=== PATIENT | female | born 1990 | race Caucasian/White ===

== ENCOUNTER → 2021-05-21 14:29 | Outpatient (CLI) | payer OTHER, SELFPAY ==
[2021-05-21 15:22] LABS: Appearance Urine UA CLEAR; Bilirubin Urine UA NEGATIVE (NEGATIVE); Color Urine UA YELLOW; Glucose Urine UA NEGATIVE (Negative); Ketones Urine UA NEGATIVE (NEGATIVE); Leukocyte Esterase Urine UA NEGATIVE (NEGATIVE); Nitrite Urine UA NEGATIVE (Negative); Occult Blood Urine UA NEGATIVE (Negative); Protein Urine UA NEGATIVE (Negative); Specific Gravity Urine UA 1.015 (1.000-1.035); Urobilinogen Urine UA 0.2 E.U./dL (0.2)
[2021-05-21 15:33] LABS: Bacteria Urine None Seen; Culture Indicated Urine Cult Not Indicated; RBC Urine None Seen (0-5/HPF); Squamous Epithelial Cell Urine 1-5 /HPF (0-5/HPF); WBC Urine 0-1/HPF (0-5/HPF)
[2021-05-21 15:37] LABS: Alanine Aminotransferase 24 IU/L (<35); Albumin 4.6 g/dL (3.5-5.0); Albumin Globulin Ratio 1.4 (1.0-2.8); Alkaline Phosphatase 57 U/L (38-126); Amylase 84 U/L (30-110); Aspartate Aminotransferase 36 IU/L (14-36); Bilirubin Total 0.3 mg/dL (0.2-1.3); Blood Urea Nitrogen 12 mg/dL (7-17); C-Reactive Protein Quant < 0.5 mg/dL (<1.0); Calcium 9.9 mg/dL (8.4-10.2); Carbon Dioxide 23 mmol/L (22-32); Chloride 108 mmol/L (98-107); Estimated Glomerular Filt Rate > 60.0 mL/min (>60); Globulin 3.4 g/dL (1.7-4.1); Glucose 91 mg/dL (70-100); HEMOLYSIS 16 (0-50); Lipase 74 U/L (23-300); Potassium 3.9 mmol/L (3.4-5.1); Sodium 140 mmol/L (137-145)
[2021-05-21 15:49] LABS: Add Manual Diff / Slide Review NO; Basophils Absolute Auto 100 /uL (0-100); Basophils Percent Auto 0.6 % (0-2); Eosinophils Absolute Auto 600 /uL (0-450); Eosinophils Percent Auto 4.9 % (2-4); Hemoglobin 14.4 g/dL (12.0-16.0); Lymphocytes Absolute Auto 2700 /uL (1100-4500); Lymphocytes Percent Auto 23.5 % (25-40); Mean Corpuscular HGB Conc 34.2 % (30-36); Mean Corpuscular Hemoglobin 29.6 PG (26-34); Mean Corpuscular Volume 86.5 fL (80-100); Monocytes Absolute Auto 600 /uL (0-900); Monocytes Percent Auto 5.6 % (3-14); Neutrophils Absolute Auto 7600 /uL (1500-7000); Neutrophils Percent Auto 65.4 % (50-75); Platelet Count 258 X10^3/uL (150-400); Red Blood Cell Count 4.86 X10^6/uL (4.0-5.2); Red Cell Distribution Width 14.3 % (11.6-14.8); White Blood Cell Count 11.5 X10^3/uL (4.5-11.0)
[2021-05-21 15:50] LABS: Pregnancy Test Serum,Qual Negative (Negative)
[2021-05-21 16:05] LABS: TSH w/ Reflex to FT4 1.16 uIU/mL (0.47-4.68)
== END ==
PROVIDERS: PCP Registered Nurse Diabetes Educator; Referring Provider Registered Nurse Diabetes Educator; Visit Provider Registered Nurse Diabetes Educator
DX: R10.9 Unspecified abdominal pain (principal); R19.7 Diarrhea, unspecified
CPT/HCPCS: 36415; 80053; 81001; 82150; 83690; 84443; 84703; 85025; 86140

== ENCOUNTER 2021-05-25 15:09 | Emergency (ER) | payer OTHER, SELFPAY ==
[2021-05-25 15:13] VITALS: BP 119/62; PULSE 65; RESP 16; TEMP 36.3; O2SAT 100; BMI 30.4
[2021-05-25 16:09] LABS: Add Manual Diff / Slide Review NO; Basophils Absolute Auto 100 /uL (0-100); Basophils Percent Auto 0.7 % (0-2); Eosinophils Absolute Auto 700 /uL (0-450); Eosinophils Percent Auto 7.3 % (2-4); Hematocrit 42.1 % (36-46); Hemoglobin 14.4 g/dL (12.0-16.0); Lymphocytes Absolute Auto 2800 /uL (1100-4500); Lymphocytes Percent Auto 28.7 % (25-40); Mean Corpuscular HGB Conc 34.1 % (30-36); Mean Corpuscular Volume 88.1 fL (80-100); Monocytes Absolute Auto 600 /uL (0-900); Monocytes Percent Auto 6.1 % (3-14); Neutrophils Absolute Auto 5600 /uL (1500-7000); Neutrophils Percent Auto 57.2 % (50-75); Platelet Count 257 X10^3/uL (150-400); Red Blood Cell Count 4.78 X10^6/uL (4.0-5.2); Red Cell Distribution Width 14.3 % (11.6-14.8); White Blood Cell Count 9.8 X10^3/uL (4.5-11.0)
[2021-05-25 16:12] LABS: Alanine Aminotransferase 24 IU/L (<35); Albumin 4.7 g/dL (3.5-5.0); Albumin Globulin Ratio 1.6 (1.0-2.8); Alkaline Phosphatase 47 U/L (38-126); Aspartate Aminotransferase 26 IU/L (14-36); BUN Creatinine Ratio 16.7 (6-22); Bilirubin Total 0.3 mg/dL (0.2-1.3); Blood Urea Nitrogen 13 mg/dL (7-17); Calcium 9.4 mg/dL (8.4-10.2); Carbon Dioxide 25 mmol/L (22-32); Chloride 106 mmol/L (98-107); Estimated Glomerular Filt Rate > 60.0 mL/min (>60); Glucose 103 mg/dL (70-100); HEMOLYSIS 23 (0-50); Lipase 89 U/L (23-300); Potassium 3.8 mmol/L (3.4-5.1); Sodium 139 mmol/L (137-145); Total Protein 7.7 g/dL (6.3-8.2)
--- NOTE | 2021-05-25 16:40 | DI.RAD.S_ITS ---
PROCEDURE: XR KUB INDICATIONS: Abdominal pain TECHNIQUE: One view of the abdomen acquired. COMPARISON: None. FINDINGS: Surgical changes and devices: None. Bowel: Bowel gas pattern is normal. Soft tissues: No suspicious abdominal calcifications. Visualized solid organ contours appear normal in size. Intrauterine device projects over the mid pelvis. Bones: No suspicious bony lesions. IMPRESSION: No acute disease process. Dictated by: Patricia Zuleta MD, PhD on 05/25/2021 at 17:07 Approved by: Patricia Zuleta MD, PhD on 05/25/2021 at 17:07
--- NOTE | 2021-05-25 17:40 | ED.ABDPAIN ---
HPI - Abdominal Pain <Willis Pacheco PA-C - Last Filed: 05/25/21 20:09> General Chief Complaint: Abdominal Pain Stated Complaint: Diarrhea, Stomach and Back Pain Time Seen by Provider: 05/25/21 15:59 Source: patient Mode of arrival: Ambulatory History of Present Illness HPI narrative: Patient is a 31-year-old female that presents the emergency department today for evaluation of abdominal pain and diarrhea. Patient states that she has experienced abdominal pain and diarrhea for ?over a month?. Patient states that she has also experienced intermittent episodes of right-sided low back pain. She states that her pain is progressively worsening, noting that her primary care provider is attempting to set up an outpatient CT for evaluation. She denies fever, chills, chest pain, cough, shortness of breath, nausea, vomiting, constipation, dysuria, hematuria, or any other concerning symptoms. No further concerns were voiced at this time. Related Data Home Medications Medication Instructions Recorded Confirmed levonorgestrel 20 mcg/24 hours (7 INTRAUTERINE 11/08/05/21/21 yrs) 52 mg intrauterine device (Mirena) Previous Rx's Medication Instructions Recorded hydroxyzine HCl 25 mg tablet 25 mg PO QID PRN #30 tab 05/09/21 tramadol 50 mg tablet 50 mg PO BID PRN #10 tab 05/21/21 tramadol 50 mg tablet 50 mg PO BID PRN #15 tab 05/25/21 Allergies Allergy/AdvReac Type Severity Reaction Status Date / Time No Known Drug Allergies Allergy Verified 05/25/21 15:18 Review of Systems <Willis Pacheco PA-C - Last Filed: 05/25/21 20:09> Constitutional Constitutional: Denies chills, Denies fatigue, Denies fever(s), Denies frequent falls, Denies lethargy and Denies weakness Eyes Eyes: Denies loss of vision ENT Ears, Nose, Mouth, and Throat: Denies dizziness and Denies neck pain Cardiovascular Cardiovascular: Denies chest pain, Denies irregular heart rhythm, Denies lightheadedness, Denies palpitations, Denies dyspnea, Denies dyspnea on exertion and Denies orthopnea Respiratory Respiratory: Denies cough, Denies dyspnea, Denies dyspnea on exertion and Denies wheezing Gastrointestinal Gastrointestinal: Reports abdominal pain, Denies change in bowel habits, Reports diarrhea, Denies nausea and Denies vomiting Genitourinary Genitourinary: Denies hematuria, Denies flank pain, Denies urinary incontinence and Denies urinary urgency Musculoskeletal Musculoskeletal: Reports back pain (Right low back pain), Denies muscle weakness, Denies neck pain, Denies numbness and Denies tingling Integumentary/Breasts Skin/Breast: Denies pruritus, Denies erythema, Denies rash and Denies wounds Neurologic Neurologic: Denies behavioral changes, Denies confusion, Denies dizziness, Denies frequent falls, Denies loss of vision, Denies numbness, Denies tingling and Denies weakness Psychiatric Psychiatric: Denies behavioral changes and Denies confusion Endocrine Endocrine: Denies fatigue and Denies palpitations Allergic/Immunologic Allergic/Immunologic: Denies wheezing Patient History <Willis Pacheco PA-C - Last Filed: 05/25/21 20:09> Medical History Anxiety (~2014) Decreased libido Surgical History Anesthesia History of surgery (~12/2019) Family History Grandmother Cancer Grandfather History of heart disease Grandmother Diabetes mellitus Social History Smoking Status: Never smoker Smoking Status: Never smoker Substance Use Type: does not use Exam <Willis Pacheco PA-C - Last Filed: 05/25/21 20:09> Narrative Exam Narrative: GENERAL: 31 year old patient appears stated age. Well-developed patient, in no acute distress. HEAD: Atraumatic. Normocephalic. EYES: Pupils equal round and reactive. Extraocular motions intact. No scleral icterus. No injection or drainage. ENT: Nose without bleeding, purulent drainage. Throat without erythema, tonsillar hypertrophy or exudate. Airway patent. NECK: Trachea midline. Non tender CARDIOVASCULAR: Regular rate and rhythm without murmurs, gallops, or rubs. RESPIRATORY: Clear to auscultation. Breath sounds equal bilaterally. No wheezes, rales, or rhonchi. GASTROINTESTINAL: Abdomen soft, nondistended. Mild tenderness to palpation noted the right lower quadrant. Negative psoas sign, negative obturator's sign. Negative for rebound tenderness. EXTREMITIES: No edema or joint tenderness. BACK: Mild tenderness to the right paraspinal muscles in the area L4-5, L5-S1 without deformity or crepitance. No flank tenderness. NEURO: AOx3. SKIN: No rash or erythema of visible areas Initial Vital Signs Initial Vital Signs: Vital Signs Temperature 97.4 F L 05/25/21 15:13 Pulse Rate 65 05/25/21 15:13 Respiratory Rate 16 05/25/21 15:13 Blood Pressure 119/62 05/25/21 15:13 Pulse Oximetry 100 05/25/21 15:13 <DO Shayne Wise Last Filed: 05/26/21 07:13> Initial Vital Signs Initial Vital Signs: Vital Signs Temperature 97.4 F L 05/25/21 15:13 Pulse Rate 65 05/25/21 15:13 Respiratory Rate 16 05/25/21 15:13 Blood Pressure 119/62 05/25/21 15:13 Pulse Oximetry 100 05/25/21 15:13 Course <Willis Pacheco PA-C - Last Filed: 05/25/21 20:09> Course Course Narrative: CBC, CMP, lipase, urine dip, x-ray KUB obtained. Orders Ordered: ED Orders 05/25/21 15:18 EKG-12 Lead Stat 05/25/21 15:30 Complete Blood Count AUTO DIFF Stat Comprehensive Metabolic Panel Stat Lipase Stat 05/25/21 16:40 XR KUB Stat Vital Signs Vital signs: Vital Signs - 8 hr 05/25/21 15:13 Temperature 97.4 F L Pulse Rate 65 Respiratory Rate 16 Blood Pressure 119/62 Pulse Oximetry 100 <DO Shayne Wise Last Filed: 05/26/21 07:13> Orders Ordered: ED Orders 05/25/21 15:18 EKG-12 Lead Stat 05/25/21 15:30 Complete Blood Count AUTO DIFF Stat Comprehensive Metabolic Panel Stat Lipase Stat 05/25/21 16:40 XR KUB Stat Vital Signs Vital signs: Vital Signs - 8 hr 05/25/21 15:13 Temperature 97.4 F L Pulse Rate 65 Respiratory Rate 16 Blood Pressure 119/62 Pulse Oximetry 100 MDM - Abdominal Pain <NEO Sanchez Last Filed: 05/25/21 20:09> Lab Data Result diagrams: 05/25/21 15:30 05/25/21 15:30 Labs: Lab Results 05/25/21 05/25/21 Range/Units 15:30 15:30 WBC 9.8 (4.5-11.0) X10^3/uL RBC 4.78 (4.0-5.2) X10^6/uL Hgb 14.4 (12.0-16.0) g/dL Hct 42.1 (36-46) % MCV 88.1 (80-100) fL MCH 30.0 (26-34) PG MCHC 34.1 (30-36) % RDW 14.3 (11.6-14.8) % Plt Count 257 (150-400) X10^3/uL Neut % (Auto) 57.2 (50-75) % Lymph % (Auto) 28.7 (25-40) % [place] % (Auto) 6.1 (3-14) % Eos % (Auto) 7.3 H (2-4) % Baso % (Auto) 0.7 (0-2) % Neut # (Auto) 5600 (0336-2900) /uL Lymph # (Auto) 2800 (3186-2907) /uL [place] # (Auto) 600 (0-900) /uL Eos # (Auto) 700 H (0-450) /uL Baso # (Auto) 100 (0-100) /uL Sodium 139 (137-145) mmol/L Potassium 3.8 (3.4-5.1) mmol/L Chloride 106 (98-107) mmol/L Carbon Dioxide 25 (22-32) mmol/L BUN 13 (7-17) mg/dL Creatinine 0.78 (0.52-1.04) mg/dL Estimated GFR > 60.0 (>60) mL/min BUN/Creatinine Ratio 16.7 (6-22) Glucose 103 H (70-100) mg/dL Calcium 9.4 (8.4-10.2) mg/dL Total Bilirubin 0.3 (0.2-1.3) mg/dL AST 26 (14-36) IU/L ALT 24 (<35) IU/L Alkaline Phosphatase 47 (38-126) U/L Total Protein 7.7 (6.3-8.2) g/dL Albumin 4.7 (3.5-5.0) g/dL Globulin 3.0 (1.7-4.1) g/dL Albumin/Globulin Ratio 1.6 (1.0-2.8) Lipase 89 (23-300) U/L Point of care testing: Point of Care Testing Test Results Negative Urine Dip Bedside Urine Glucose Negative Bedside Urine Bilirubin - Negative Bedside Urine Ketone - Negative Urine Specific [place] 1.030 Bedside Urine Occult Blood + Bedside Urine pH 5.5 Bedside Urine Protein - Negative Bedside Urine Urobilinogen - Negative Bedside Urine Nitrite - Negative Bedside Urine Leukocytes - Negative Esterase Imaging Data Abdominal x-ray: Radiologist's Impression: PROCEDURE:? XR KUB ? INDICATIONS:? Abdominal pain ? TECHNIQUE:? One view of the abdomen acquired.? ? COMPARISON:? None. ? FINDINGS:? ? Surgical changes and devices:? None.? ? Bowel:? Bowel gas pattern is normal.? ? Soft tissues:? No suspicious abdominal calcifications.? Visualized solid organ contours appear normal in size.? Intrauterine device projects over the mid pelvis.? ? Bones:? No suspicious bony lesions.? ? IMPRESSION:? No acute disease process. ? ? Dictated by: Patricia Zuleta MD, PhD on 05/25/2021 at 17:07 ? ? Approved by: Patricia Zuleta MD, PhD on 05/25/2021 at 17:07 ? MDM Narrative Medical decision making narrative: To consider ureterolithiasis versus nephrolithiasis versus urinary tract infection versus ovarian cyst versus gastroenteritis versus is appendicitis versus cholecystitis versus acute cholangitis versus choledocholithiasis versus cholelithiasis. Overall, physical examination, history, lab studies, vital signs, imaging studies obtained in the emergency department today overturned reassuring. Discussed results of lab studies and x-ray with patient informed her that no acute abnormality was identified today that would require emergent intervention or further workup. Discussed possibility of obtaining a CT scan, however this time patient states that she feels comfortable foregoing the scan at this time. Patient states that her primary care provider is attempting to set up an outpatient CT. At this time patient states that she would like to be discharged home. Strict return precautions were discussed with the patient prior to discharge. Patient is stable and ready for discharge at this time. <Monalisa Chandra, DO - Last Filed: 05/26/21 07:13> Lab Data Labs: Lab Results 05/25/21 05/25/21 Range/Units 15:30 15:30 WBC 9.8 (4.5-11.0) X10^3/uL RBC 4.78 (4.0-5.2) X10^6/uL Hgb 14.4 (12.0-16.0) g/dL Hct 42.1 (36-46) % MCV 88.1 (80-100) fL MCH 30.0 (26-34) PG MCHC 34.1 (30-36) % RDW 14.3 (11.6-14.8) % Plt Count 257 (150-400) X10^3/uL Neut % (Auto) 57.2 (50-75) % Lymph % (Auto) 28.7 (25-40) % [place] % (Auto) 6.1 (3-14) % Eos % (Auto) 7.3 H (2-4) % Baso % (Auto) 0.7 (0-2) % Neut # (Auto) 5600 (7474-2443) /uL Lymph # (Auto) 2800 (3524-1443) /uL [place] # (Auto) 600 (0-900) /uL Eos # (Auto) 700 H (0-450) /uL Baso # (Auto) 100 (0-100) /uL Sodium 139 (137-145) mmol/L Potassium 3.8 (3.4-5.1) mmol/L Chloride 106 (98-107) mmol/L Carbon Dioxide 25 (22-32) mmol/L BUN 13 (7-17) mg/dL Creatinine 0.78 (0.52-1.04) mg/dL Estimated GFR > 60.0 (>60) mL/min BUN/Creatinine Ratio 16.7 (6-22) Glucose 103 H (70-100) mg/dL Calcium 9.4 (8.4-10.2) mg/dL Total Bilirubin 0.3 (0.2-1.3) mg/dL AST 26 (14-36) IU/L ALT 24 (<35) IU/L Alkaline Phosphatase 47 (38-126) U/L Total Protein 7.7 (6.3-8.2) g/dL Albumin 4.7 (3.5-5.0) g/dL Globulin 3.0 (1.7-4.1) g/dL Albumin/Globulin Ratio 1.6 (1.0-2.8) Lipase 89 (23-300) U/L Point of care testing: Point of Care Testing Test Results Negative Urine Dip Bedside Urine Glucose Negative Bedside Urine Bilirubin - Negative Bedside Urine Ketone - Negative Urine Specific [place] 1.030 Bedside Urine Occult Blood + Bedside Urine pH 5.5 Bedside Urine Protein - Negative Bedside Urine Urobilinogen - Negative Bedside Urine Nitrite - Negative Bedside Urine Leukocytes - Negative Esterase Discharge Plan Departure Patient Disposition: Home Clinical Impression: Abdominal pain Instructions: DI for Abdominal Pain-Adult Activity Restrictions/Additional Instructions: *You have been diagnosed with abdominal pain *What to do: *Please continue to take your regular medications as directed. [X] New medication prescriptions sent to your pharmacy: [facility] - Tramadol [ ] New medication written as a paper prescription [ ] No new medications given Physical examination and x-ray imaging obtained today were overall reassuring. Your lab studies did not show signs of any acute abnormality that would require further workup. I have prescribed you a course of Toradol to help alleviate your discomfort to her preferred pharmacy. Recommend following up with the primary care provider within the next 2-3 days for further evaluation. Do not hesitate to return to the emergency department if you experience worsening pain, fever, intractable vomiting, blood in your stool, or any other concerning symptoms. *Please follow up with your primary care provider in 2-3 days, call for an appointment. Let them know you were seen in the Emergency Department and that we ask that you be seen in follow up. We will electronically transmit a record of today's note if your PCP is in our system *If you do not have a primary care provider please contact the [facility] Resource line at [phone]. They will ask some questions about your medical history and help get you set up with a doctor in the community. *Return to Emergency Department if you should have any new, worsening or concerning symptoms, such as fever greater than 101 F, shaking chills, worsening pain, persistent vomiting or other bothersome symptoms. Prescriptions: New tramadol 50 mg tablet 50 mg PO BID PRN (Reason: pain) Qty: 15 0RF No Action Mirena 20 mcg/24 hours (6 yrs) 52 mg intrauterine device intrauterine 0RF tramadol 50 mg tablet 50 mg PO BID PRN (Reason: pain) Qty: 10 0RF hydroxyzine HCl 25 mg tablet 25 mg PO QID PRN (Reason: anxiety) Qty: 30 5RF Referrals: Darwin Reilly ARNP [Primary Care Provider] - <Monalisa Chandra DO - Last Filed: 05/26/21 07:13> Cosign ED Attending Cosignature Attestation: I was immediately available in the department for consultation. Documentation has been reviewed. I agree with assessment and plan.
== END 2021-05-25 18:10 | disposition home or self-care (01) ==
PROVIDERS: Emergency Medicine; Emergency Provider Physician Assistant; PCP Registered Nurse Diabetes Educator
DX: R10.31 Right lower quadrant pain (principal); R19.7 Diarrhea, unspecified
CPT/HCPCS: 36415; 74018; 80053; 81003; 81025; 83690; 85025; 93005; 93010; 99283; 99284

== ENCOUNTER → 2021-06-05 09:22 | Outpatient (CLI) | payer OTHER, SELFPAY ==
--- NOTE | 2021-06-05 09:25 | DI.CT.S_ITS ---
PROCEDURE: CT ABDOMEN PELVIS W CON INDICATIONS: Lower abdominal pain, chronic diarrhea TECHNIQUE: Helical axial CT of the abdomen and pelvis was obtained after intravenous contrast injection and reformatted in multiple planes. Radiation dose reduction was achieved utilizing automated exposure control and/or adjustment of the dose parameters according to patient's size. COMPARISON: None. FINDINGS: Lower thorax: Mild dependent atelectasis. Heart size normal. No hiatal hernia. Liver: Normal in size and attenuation. No contour deformity present. Biliary system: No calcified cholelithiasis or pericholecystic inflammation. No intra or extrahepatic bile duct dilatation. Pancreas: Unremarkable without mass or inflammation evident. Spleen: Normal in size and density. Adrenals: Normal morphology and density. Reproductive system: Unremarkable as visualized. Intrauterine device in place Urinary system: Normal renal size and attenuation. Simple 1.7 cm right renal cortical cyst. No renal calculi, hydronephrosis, or solid mass present. Urinary bladder unremarkable. Gastrointestinal system: The bowel is unremarkable without evidence of bowel obstruction or inflammation. The stomach appears unremarkable. Appendix: Normal appendix identified. No evidence of appendicitis. Peritoneal spaces: No mesenteric or retroperitoneal adenopathy. No free air. No free fluid. Vasculature: The IVC, aorta and iliac vasculature are unremarkable. Abdominal wall: Abdominal wall intact without evidence of ventral or inguinal hernias. Musculoskeletal: Normal bone mineralization. No acute fractures. IMPRESSION: 1. No acute CT findings in the abdomen and pelvis. 2. Incidental right renal cortical cyst. No hydronephrosis. Approved by: Matthew Ramirez M.D. on 06/05/2021 at 9:55
== END ==
PROVIDERS: PCP Registered Nurse Diabetes Educator; Referring Provider Registered Nurse Diabetes Educator; Visit Provider Registered Nurse Diabetes Educator
DX: R19.7 Diarrhea, unspecified (principal); R10.30 Lower abdominal pain, unspecified; N28.1 Cyst of kidney, acquired
CPT/HCPCS: 74177

== ENCOUNTER → 2021-07-23 13:03 | Outpatient (CLI) | payer OTHER, SELFPAY ==
[2021-07-23 15:17] LABS: COVID19 -Nasal RAPID Negative (Negative)
== END ==
PROVIDERS: PCP Registered Nurse Diabetes Educator; Referring Provider Family Medicine Sleep Medicine; Visit Provider Family Medicine Sleep Medicine
DX: Z20.822 Contact with and (suspected) exposure to COVID-19 (principal)
CPT/HCPCS: 87635; C9803

== ENCOUNTER 2021-07-25 12:48 | Day surgery (SDC) | payer OTHER, SELFPAY ==
--- NOTE | 2021-07-25 | PATH_ITS ---
[facility] Accession Number: [id number] No. of containers..02 Tissue . 01 Material submitted: . PART A: colon - RANDOM COLON PART B: sigmoid colon - SIGMOID COLON POLYP . 01 Clinical history: . A: FOR DIARRHEA . 02 Diagnosis: A. Random Colon, Biopsies: Lymphocytic colitis. . B. Sigmoid Colon Polyp, Biopsy: Hyperplastic polyp. MRV 07/27/2021 1034 Local . 02 Electronically signed: . Horacio Leal MD, PhD, Pathologist NPI- [id number] . 01 Gross description: . Part A: RANDOM COLON: Received in formalin are multiple fragment(s) of mcguire, soft tissue measuring 0.1 x 0.1 x 0.1 cm to 00.5 x 0.2 x 0.2 cm submitted entirely in 1 cassette(s) Part B: SIGMOID COLON POLYP: Received in formalin is 1 fragment(s) of mcguire, soft tissue measuring 0.3 x 0.3 x 0.2 cm submitted entirely in 1 cassette(s) /ANGE 07/26/2021 1845 Local . 02 Pathologist provided ICD-10: R19.7, K52.89, K63.5 . 02 CPT . 981218, 617808 Specimen Comment: A courtesy copy of this report has been sent to [phone], [phone] Specimen Comment: 2055 Performed at: 01 [facility] [address], [place], [place] [id number] MD Juvenal Sarah MD Phone: [phone] Performed at: 02 [facility] [place] [address] [place], [place] [id number] MD Saira Lewis MD Phone: [phone]
[2021-07-25] MEDS: SODIUM CHLORIDE 0.9% 1,000 ML 100 ML IV (13:25)
[2021-07-25 13:28] VITALS: BP 109/73; PULSE 71; RESP 16; TEMP 36; BMI 29.6
--- NOTE | 2021-07-25 14:21 | PM.PREOP ---
Pre-operative Note COVID-19 COVID-19 status: Negative Interval Note History & Physical reviewed/Exam performed by Physician: Yes Changes to H&P: No ASA Class (for procedural sedation): II
--- NOTE | 2021-07-25 14:22 | PM.OP.COLON ---
Operative Date/Time/Diagnoses Date of procedure: 07/25/21 Pre-op diagnosis: See indication and findings Procedure & Clinicians Study performed: Colonoscopy Indications: Diarrhea and abdominal cramping Surgeon: Tigist Sutherland Procedure Notes Procedure in detail: After informed consent was obtained the patient was placed in left lateral decubitus position. The video colonoscope was introduced the rectum slowly advanced cecum where the IC valve was identified and intubated. Preparation was good. On slow withdrawal mucosa was carefully examined. The scope was removed. The patient tolerated procedure well. Blood loss none Complications none Sedation mac Findings 1. Normal terminal ileum 2. Normal colonoscopy to cecum however with a very subtle decrease in vascular pattern in a patchy fashion throughout the colon. Random biopsies taken to rule out microscopic colitis. 3. 5 mm sessile polyp in the distal sigmoid colon cold snared and removed completely. Will be in touch regarding: Biopsy results. She will need follow-up colonoscopy in 5-7 years pending the polyp findings and if her colon biopsies for diarrhea are negative rule out consider another direction.
[2021-07-25 14:44] VITALS: BP 93/57; PULSE 69; RESP 13; TEMP 37.1; O2SAT 100
[2021-07-25 14:49] VITALS: BP 95/62; PULSE 67; RESP 15; O2SAT 99
[2021-07-25 14:54] VITALS: BP 104/43; PULSE 60; RESP 18; O2SAT 100
[2021-07-25 15:20] VITALS: BP 106/67; PULSE 54; RESP 16; TEMP 36.7; O2SAT 100
[2021-07-25 15:44] VITALS: BP 99/62; PULSE 64; RESP 16; TEMP 37; O2SAT 100
--- NOTE | 2021-07-25 15:56 | SUR.PHASEII ---
Pt ready to go, awaiting to pick her up.
--- NOTE | 2021-07-25 16:13 | SUR.PHASEII ---
1605 ride arrived, pt left in stable condition.
== END 2021-07-25 16:05 | disposition home or self-care (01) ==
PROVIDERS: PCP Registered Nurse Diabetes Educator; Referring Provider Internal Medicine Gastroenterology; Visit Provider Internal Medicine Gastroenterology
PROC: 0DJD8ZZ Inspection of Lower Intestinal Tract, Via Natural or Artificial Opening Endoscopic (ICD-10-PCS; CPT 45378; principal; 2021-07-25 15:00)
DX: K52.832 Lymphocytic colitis (principal); K63.5 Polyp of colon
CPT/HCPCS: 45385; 45380; 81025; J2704

== ENCOUNTER 2021-08-09 13:32 | Emergency (ER) | payer OTHER, SELFPAY ==
[2021-08-09 14:02] VITALS: BP 116/79; PULSE 96; RESP 18; TEMP 36.5; O2SAT 100; BMI 28.1
[2021-08-09 14:47] LABS: Appearance Urine UA SL CLOUDY; Bilirubin Urine UA NEGATIVE (NEGATIVE); Color Urine UA YELLOW; Glucose Urine UA TRACE g/dL (Negative); Ketones Urine UA NEGATIVE (NEGATIVE); Leukocyte Esterase Urine UA NEGATIVE (NEGATIVE); Nitrite Urine UA NEGATIVE (Negative); Occult Blood Urine UA 1+ (Negative); Protein Urine UA NEGATIVE (Negative); Specific Gravity Urine UA 1.025 (1.000-1.035); Urobilinogen Urine UA 0.2 E.U./dL (0.2)
--- NOTE | 2021-08-09 15:01 | ED_ITS ---
HPI - General Adult General Chief complaint: Abdominal Pain Stated complaint: Stomach pain/cramping since April Time Seen by Provider: 08/09/21 13:56 Source: patient Mode of arrival: Ambulatory History of Present Illness HPI narrative: Patient is a 31-year-old female. Has had abdominal pain and cramping since earlier this year. Has had workup for this in the past to include CT scans and ultrasounds. Last week she had a colonoscopy and had biopsies taken. She has not had a follow-up yet for the results of these. She is on dicyclomine. She states that over the past couple days she has had worsening pain. The dicyclomine use to help her symptoms but now does not seem to improve them. She does not have any urinary symptoms. She did have some vomiting last evening because of the pain. No rashes. She contact her primary doctor and her GI doctor but they could not see her for some time so she is here in the emergency department for evaluation. Related Data Home Medications Medication Instructions Recorded Confirmed levonorgestrel 20 mcg/24 hours (7 11/08/20 05/21/21 yrs) 52 mg intrauterine device (Mirena) Previous Rx's Medication Instructions Recorded hydroxyzine HCl 25 mg tablet 25 mg PO QID PRN #30 tab 05/09/21 tramadol 50 mg tablet 50 mg PO BID PRN #10 tab 05/21/21 tramadol 50 mg tablet 50 mg PO BID PRN #15 tab 05/25/21 dicyclomine 20 mg tablet 20 mg PO QID PRN #30 tab 06/06/21 sertraline 100 mg tablet 100 mg PO DAILY #90 tab 06/06/21 hyoscyamine sulfate 0.125 mg tablet 0.125 mg PO BID-QID PRN #30 tab 08/09/21 Allergies Allergy/AdvReac Type Severity Reaction Status Date / Time No Known Drug Allergies Allergy Verified 08/09/21 14:10 Review of Systems Constitutional Constitutional: Denies fever(s) Gastrointestinal Gastrointestinal: Reports as per HPI and Reports system reviewed and no additional complaints, except as documented Genitourinary Genitourinary: Reports system reviewed and no additional complaints, except as documented and Reports as per HPI Integumentary/Breasts Skin/Breast: Reports system reviewed and no additional complaints, except as documented Patient History Medical History Anxiety (~2014) Decreased libido Ectopic Surgical History (Updated 07/24/21 @ 15:13 by Lashaun Burden RN) Anesthesia H/O LEEP History of surgery (~12/2019) Family History Grandmother Cancer Grandfather History of heart disease Grandmother Diabetes mellitus Social History household members: spouse Smoking Status: Former smoker alcohol intake: former Smoking Status: Former smoker Substance Use Type: does not use Exam Initial Vital Signs Initial Vital Signs: Vital Signs Temperature 97.7 F 08/09/21 14:02 Pulse Rate 96 H 08/09/21 14:02 Respiratory Rate 18 08/09/21 14:02 Blood Pressure 116/79 08/09/21 14:02 Pulse Oximetry 100 08/09/21 14:02 HENMT Head: normal to inspection and normocephalic Resp Effort & Inspection: normal respiratory effort Cardio Rate: regular rate GI Inspection: normal to inspection and non-distended Palpation: soft and No firm Skin General: no rashes or lesions noted Extrem General: normal to inspection Course Orders Ordered: ED Orders 08/09/21 14:43 UA Complete [Urinalysis and Microscopic] Stat Vital Signs Vital signs: Vital Signs - 8 hr 08/09/21 14:02 Temperature 97.7 F Pulse Rate 96 H Respiratory Rate 18 Blood Pressure 116/79 Pulse Oximetry 100 Medical Decision Making Medical Records Medical records reviewed: Yes I reviewed the patient's medical records. Lab Data Lab results reviewed: Yes I reviewed the patient's lab results. Labs: Lab Results 08/09/21 Range/Units 14:43 Urine Color Yellow Urine Appearance Sl cloudy Urine pH 5.0 (4.5-8.0) Ur Specific [place] 1.025 (1.000-1.035) Urine Protein Negative (Negative) Urine Glucose (UA) Trace H (Negative) g/dL Urine Ketones Negative (NEGATIVE) Urine Occult Blood 1+ H (Negative) Urine Nitrate Negative (Negative) Urine Bilirubin Negative (NEGATIVE) Urine Urobilinogen 0.2 (0.2) E.U./dL Ur Leukocyte Esterase Negative (NEGATIVE) Point of Care Testing Test Results Negative Point of care testing: Point of Care Testing Test Results Negative MDM Narrative Medical decision making narrative: A review of the patient's biopsies show that she has lymphocytic colitis and a hypertrophic follow-up. I informed the patient that unfortunately she would have to get more information from this from her GI provider. I suspect that the polyp is not causing her discomfort but the colitis potentially is the source of her symptoms. The procedure note was not available for review. Patient has had multiple workups for the pain that she comes with today and I feel that further labs nor radiologic studies would be unhelpful in this situation. Patient has been on dicyclomine. Plan abuse to switch her to Hyoscymine which was transmitted to the pharmacy of her choice. Will avoid any opioid pain medication in this situation is I feel it would just complicates the situation. Lab the patient contact her primary doctor for follow-up and keep her scheduled appointment with her GI provider. Discharge Plan Departure Patient Disposition: Home Clinical Impression: Abdominal pain Instructions: DI for Abdominal Pain-Adult Activity Restrictions/Additional Instructions: Unfortunately unless there are new symptoms there is not much more that the emergency department can provide. I do recommend that you contact your GI provider to discuss the results of the biopsies. Her primary provider and also provide pain control. We will switch you from the dicyclomine to Hyoscyamine. Return to the emergency department for new symptoms. Prescriptions: New hyoscyamine sulfate 0.125 mg tablet 0.125 mg PO BID-QID PRN (Reason: dyspepsia) Qty: 30 0RF No Action Mirena 20 mcg/24 hours (6 yrs) 52 mg intrauterine device intrauterine 0RF dicyclomine 20 mg tablet 20 mg PO QID PRN (Reason: abdominal pain) Qty: 30 2RF sertraline 100 mg tablet 100 mg PO DAILY Qty: 90 3RF tramadol 50 mg tablet 50 mg PO BID PRN (Reason: pain) Qty: 10 0RF hydroxyzine HCl 25 mg tablet 25 mg PO QID PRN (Reason: anxiety) Qty: 30 5RF tramadol 50 mg tablet 50 mg PO BID PRN (Reason: pain) Qty: 15 0RF Referrals: Darwin Reilly ARNP [Primary Care Provider] -
[2021-08-09 15:07] LABS: Bacteria Urine Occasional (0-1); Culture Indicated Urine Cult Not Indicated; RBC Urine None Seen (0-5/HPF); Squamous Epithelial Cell Urine 0-1 /HPF (0-5/HPF); WBC Urine 0-1/HPF (0-5/HPF)
[2021-08-09 15:13] VITALS: BP 110/64; PULSE 65; O2SAT 100
== END 2021-08-09 15:14 | disposition home or self-care (01) ==
PROVIDERS: Nurse Practitioner Critical Care Medicine; Emergency Provider Emergency Medicine; PCP Registered Nurse Diabetes Educator
DX: R10.9 Unspecified abdominal pain (principal)
CPT/HCPCS: 81001; 81025; 99282

== ENCOUNTER → 2022-07-24 14:23 | Outpatient (CLI) | payer OTHER, SELFPAY ==
[2022-07-24 14:59] LABS: Add Manual Diff / Slide Review NO; Basophils Absolute Auto 100 /uL (0-100); Basophils Percent Auto 0.8 % (0-2); Eosinophils Absolute Auto 500 /uL (0-450); Eosinophils Percent Auto 4.5 % (2-4); Hematocrit 41.8 % (36-46); Hemoglobin 14.3 g/dL (12.0-16.0); Lymphocytes Absolute Auto 2600 /uL (1100-4500); Lymphocytes Percent Auto 26.4 % (25-40); Mean Corpuscular HGB Conc 34.1 % (30-36); Mean Corpuscular Hemoglobin 29.9 PG (26-34); Mean Corpuscular Volume 87.7 fL (80-100); Monocytes Absolute Auto 600 /uL (0-900); Monocytes Percent Auto 5.7 % (3-14); Neutrophils Absolute Auto 6300 /uL (1500-7000); Neutrophils Percent Auto 62.6 % (50-75); Platelet Count 330 X10^3/uL (150-400); Red Blood Cell Count 4.77 X10^6/uL (4.0-5.2); Red Cell Distribution Width 14.2 % (11.6-14.8)
[2022-07-24 15:17] LABS: Erythrocyte Sedimentation Rate 23 MM/HR (0-20)
[2022-07-24 15:37] LABS: Alanine Aminotransferase 29 IU/L (<35); Albumin Globulin Ratio 1.3 (1.0-2.8); Alkaline Phosphatase 74 U/L (38-126); Aspartate Aminotransferase 22 IU/L (14-36); BUN Creatinine Ratio 16.4 (6-22); Bilirubin Total 0.2 mg/dL (0.2-1.3); Blood Urea Nitrogen 12 mg/dL (7-17); C-Reactive Protein Quant 0.9 mg/dL (<1.0); Calcium 9.4 mg/dL (8.4-10.2); Carbon Dioxide 22 mmol/L (22-32); Chloride 108 mmol/L (98-107); Estimated Glomerular Filt Rate > 60 mL/min (>60); Globulin 3.1 g/dL (1.7-4.1); Glucose 103 mg/dL (70-100); HEMOLYSIS < 15 (0-50); Potassium 4.3 mmol/L (3.4-5.1); Sodium 139 mmol/L (137-145); Total Protein 7.1 g/dL (6.3-8.2)
[2022-07-24 15:41] LABS: Rheumatoid Factor < 8.6 IU/mL (<12.0)
[2022-07-24 16:05] LABS: TSH w/ Reflex to FT4 0.71 uIU/mL (0.47-4.68)
[2022-07-26 18:14] LABS: ANA Screen, IFA Negative (.)
[2022-07-28 16:36] LABS: CCP Antibodies IgG/IgA 57 units (0-19)
[2022-07-31 17:23] LABS: HLA B27 Negative (.)
== END ==
PROVIDERS: PCP Registered Nurse Diabetes Educator; Referring Provider Registered Nurse Diabetes Educator; Visit Provider Registered Nurse Diabetes Educator
DX: M25.50 Pain in unspecified joint (principal)
CPT/HCPCS: 36415; 80053; 81374; 84443; 85025; 85651; 86038; 86140; 86200; 86430

== ENCOUNTER → 2022-10-26 11:13 | Outpatient (CLI) | payer OTHER, SELFPAY ==
--- NOTE | 2022-10-26 11:14 | DI.MRI.S_ITS ---
PROCEDURE: MR LUMBAR SPINE WO CON INDICATIONS: ongoing sciatica TECHNIQUE: Noncontrast sagittal T1 spin echo and T2 fast echo, sagittal STIR, and T2 fast spin echo through the lumbar spine. In cases with scoliosis, additional coronal T2 fast spin echo may be performed. COMPARISON: None. FINDINGS: Image quality: Excellent. Alignment and Curvature: Straightening of the normal lumbar lordosis. No spondylolisthesis. Bone Marrow: Degenerative endplate changes at L5-S1. No acute vertebral body compression fractures. Spinal Cord: Conus medullaris terminates at the L1 level. Visualized cord demonstrates normal signal and size. Paraspinous Soft Tissues: No paravertebral masses. Right renal cyst. T12-L1: Normal appearance. L1-L2: Disc desiccation and height loss with a central disc protrusion without significant central canal stenosis. No neural foraminal stenosis. L2-L3: Normal appearance. L3-L4: Normal appearance. L4-L5: Normal appearance. L5-S1: Disc desiccation and height loss with a right subarticular disc extrusion resulting in severe narrowing of the right lateral recess and impinges on the descending right S1 nerve root. Mild central canal stenosis. No neural foraminal stenosis. IMPRESSION: 1. At L5-S1, there is disc desiccation and height loss with a right subarticular disc extrusion resulting in severe narrowing of the right lateral recess and impingement of the descending right S1 nerve root. Mild central canal stenosis. 2. Disc desiccation height loss of L1 on L2 with a small central disc protrusion without significant central canal stenosis. 3. No neural foraminal stenosis. Dictated by: Heriberto Maldonado M.D. on 10/28/2022 at 9:15 Approved by: Heriberto Maldonado M.D. on 10/28/2022 at 9:21
== END ==
PROVIDERS: PCP Registered Nurse Diabetes Educator; Referring Provider Nurse Practitioner Family; Visit Provider Nurse Practitioner Family
DX: M48.07 Spinal stenosis, lumbosacral region; M51.16 Intervertebral disc disorders with radiculopathy, lumbar region; M51.17 Intervertebral disc disorders with radiculopathy, lumbosacral region
CPT/HCPCS: 72148

== ENCOUNTER 2022-12-20 12:36 | Emergency (ER) | payer OTHER, SELFPAY ==
[2022-12-20 12:46] VITALS: BP 138/90; PULSE 92; RESP 14; TEMP 36.5; O2SAT 99; BMI 33.6
--- NOTE | 2022-12-20 15:40 | PC.NURSE ---
Dr. Terry and staff called patient multiple times. pt left without being seen.
== END 2022-12-20 15:40 | disposition left against medical advice (07) ==
PROVIDERS: Emergency Provider Emergency Medicine; PCP Registered Nurse Diabetes Educator
CPT/HCPCS: 99281

== ENCOUNTER → 2023-05-14 06:36 | Outpatient (CLI) | payer OTHER, SELFPAY ==
--- NOTE | 2023-05-14 06:38 | DI.US.S_ITS ---
PROCEDURE: US PELVIC COMPLETE INDICATIONS: eval for IUD positioning, strings not seen TECHNIQUE: Real-time scanning was performed of the pelvic organs, with image documentation. Additional endovaginal scanning was necessary due to incomplete visualization of the adnexal and endometrial structures by transabdominal scanning. COMPARISON: None. FINDINGS: Uterus: 8.2 x 4.3 x 5.7 cm. The endometrium measures 4 mm. The IUD is seen within the endometrium. Ovaries: Mildly enlarged right ovary with a dominant follicle measuring up to 2.2 cm. Total volume is about 17 cc. Nonenlarged left ovary. Other: No pathologic free fluid. IMPRESSION: IUD is seen within the endometrium. Dictated by: Jethro Paz M.D. on 05/14/2023 at 12:20 Approved by: Jethro Paz M.D. on 05/14/2023 at 12:21
== END ==
PROVIDERS: PCP Registered Nurse Diabetes Educator; Referring Provider Registered Nurse Diabetes Educator; Visit Provider Registered Nurse Diabetes Educator
DX: T83.32XA Displacement of intrauterine contraceptive device, initial encounter (principal)
CPT/HCPCS: 76830; 76856

== ENCOUNTER → 2023-09-02 16:30 | Outpatient (CLI) | payer OTHER, SELFPAY ==
[2023-09-02 18:02] LABS: BUN Creatinine Ratio 11.2 (6-22); Blood Urea Nitrogen 10 mg/dL (7-17); Calcium 9.5 mg/dL (8.4-10.2); Carbon Dioxide 16 mmol/L (22-32); Chloride 111 mmol/L (98-107); Estimated Glomerular Filt Rate > 60 mL/min (>60); Glucose 81 mg/dL (70-100); HEMOLYSIS < 15 (0-50); Potassium 3.9 mmol/L (3.4-5.1); Sodium 139 mmol/L (137-145)
== END ==
LOC: LAB 16:31
PROVIDERS: PCP Registered Nurse Diabetes Educator; Referring Provider Registered Nurse Diabetes Educator; Visit Provider Registered Nurse Diabetes Educator
DX: Z51.81 Encounter for therapeutic drug level monitoring (principal)
CPT/HCPCS: 36415; 80048